=== PATIENT | male | born 1995 | race Caucasian/White ===

== ENCOUNTER 2018-05-30 12:15 | Inpatient (IN) | payer MEDICAID, OTHER ==
[~2018-05-30] VITALS: Ht 180.3 cm; Wt 68.0 kg
[2018-05-30 12:29] VITALS: BP 135/86
--- NOTE | 2018-05-30 12:30 | NUR ---
BIB self w c/o testicular swelling and pain 09/28 x 1 week. States he was having intercourse 1 week ago and started to have a sharp pain in his testicles and they began to swell, and again 3 days ago and developed the same pain and the swelling got worse. Denies NV and dysuria. HX: none RX: none
--- NOTE | 2018-05-30 12:30 | NUR ---
PT AMBULATED TO BED 6 FOR BEDSIDE TRIAGE
--- NOTE | 2018-05-30 12:35 | NUR ---
EDMD AT BEDSIDE PERFORMING MSE
[2018-05-30] MEDS ORDERED: KETOROLAC 60 MG/2 ML VIAL IM ONE (12:55)
[2018-05-30] MEDS ORDERED: cefTRIAXone 250 MG in LIDOCAINE MPF 1% - 5 mL VIAL 0.9 ML IM ONE (12:55)
--- NOTE | 2018-05-30 12:58 | NUR ---
URINE SAMPLE COLLECTED AND SENT TO LAB
[2018-05-30 13:07] LABS: APPEARANCE,URINE CLOUDY (CLEAR); BILIRUBIN,URINE NEGATIVE (NEGATIVE); BLOOD, URINE NEGATIVE (NEGATIVE); COLOR,URINE YELLOW (YELLOW); LEUKOCYTE ESTERASE ,URINE NEGATIVE (NEGATIVE); NITRITE, URINE POSITIVE (NEGATIVE); UGLUCOSE NEGATIVE (NEGATIVE)
--- NOTE | 2018-05-30 13:14 | NUR ---
US AT BEDSIDE
[2018-05-30 13:26] LABS: WBC,URINE 0-5 /HPF (0-5)
[2018-05-30 13:28] LABS: URINE AMORPHOUS URATE 3+ /HPF (None Seen)
[2018-05-30 14:15] VITALS: BP 120/76
--- NOTE | 2018-05-30 14:35 | NUR ---
Pt resting in bed, states he is in "no pain" at this time 0
[2018-05-30] MEDS ORDERED: DOXYCYCLINE 100 MG CAP PO SCH (15:00)
[2018-05-30] MEDS ORDERED: ONDANSETRON 4 MG/2 ML VIAL IM/IVP PRN (15:00)
[2018-05-30] MEDS ORDERED: HYDROcodone/APAP 5/325 MG 1 TAB TAB PO PRN (15:00)
[2018-05-30] MEDS ORDERED: ACETAMINOPHEN 325 MG TAB PO PRN (15:00)
[2018-05-30] MEDS ORDERED: MORPHINE SULFATE 2 MG/ML SYR IVP PRN (15:00)
[2018-05-30] MEDS ORDERED: AZITHROMYCIN 1,000 MG in DEXTROSE 5% 500 ML IV ONE ×2 (15:10→15:15)
[2018-05-30] MEDS ORDERED: cefTRIAXone 1,000 MG VIAL ONE (15:17)
[2018-05-30 15:32] LABS: BASOPHILS # (AUTO) 0.1 K/uL (0.00-0.22); BASOPHILS % (AUTO) 0.5 % (0.0-2.0); EOSINOPHILS # (AUTO) 0.1 K/uL (0-0.4); EOSINOPHILS % (AUTO) 1.5 % (0.0-4.0); HEMATOCRIT 41.8 % (36-52); HEMOGLOBIN 13.9 g/dL (12.0-18.0); LYMPHOCYTES # (AUTO) 1.7 K/uL (2.0-11.5); LYMPHOCYTES % (AUTO) 17.4 % (20.5-51.1); MEAN CORPUSCULAR HEMOGLOBIN 29 pg (27-31); MEAN CORPUSCULAR HGB CONC 33 g/dL (33-37); MEAN CORPUSCULAR VOLUME 87.8 fL (80-94); MONOCYTES # (AUTO) 0.8 K/uL (0.8-1.0); MONOCYTES % (AUTO) 7.6 % (1.7-9.3); NEUTROPHILS # (AUTO) 7.2 K/uL (1.8-7.7); PLATELET COUNT (AUTO) 403 K/uL (140-450); RED BLOOD CELL COUNT(AUTO) 4.76 MIL/uL (4.20-6.10); WHITE BLOOD COUNT (AUTO) 9.8 K/uL (4.8-10.8)
[2018-05-30 15:56] LABS: ALBUMIN 3.2 g/dL (3.4-5.0); ANION GAP 8.9 (8-16); CREATININE 0.9 mg/dL (0.7-1.3); POTASSIUM 3.9 mmol/L (3.5-5.1); TOTAL BILIRUBIN 0.5 mg/dL (0.0-1.0)
[2018-05-30 16:05] LABS: MAGNESIUM 2.2 mg/dL (1.8-2.4); PHOSPHORUS 3.3 mg/dL (2.5-4.9); THYROID STIMULATING HORMONE 1.01 uIU/mL (0.34-3.74)
[2018-05-30 16:05] LABS: BARBITURATE, URINE NEG. ng/ml (NEG <=200); BENZODIAZEPINE, URINE NEG. ng/mL (NEG <=200); CANNABINOID, URINE NEG. ng/mL (NEG <=50); COCAINE, URINE NEG. ng/mL (NEG <=300); OPIATE, URINE NEG. ng/mL (NEG <=2000); PHENCYCLIDINE SCREEN,URINE NEG. ng/mL (NEG <=25)
[2018-05-30 16:10] VITALS: BP 126/76
--- NOTE | 2018-05-30 16:10 | NUR ---
Patient will be admitted to care of Dr. Leonard. Admited to [facility]. Will go to room 111B. Belongings list completed. Report to Lizzeth RUSHING.
--- NOTE | 2018-05-30 16:15 | NUR ---
RECEIVED REPORT FROM CHARGE NURSE. PT IS AAOX4, IV IN RIGHT AC 20G. IV FLUIDS TO BE INFUSED AT 100ML/HR. PT AMBULATES WELL. SKIN INTACT BUT RASH NOTED ON SCROTUM AND PENIS. PICTURE TAKEN. PT HAS NO COMPLAINTS OF PAIN. ON ROOM AIR. VITAL SIGNS STABLE. WILL CONTINUE TO MONITOR PT. DISCUSSED PLAN OF CARE WITH PT. PT VERBALIZED UNDERSTANDING.
[2018-05-30 16:28] LABS: PROTHROMBIN TIME 9.8 secs (10.8-13.4)
[2018-05-30] MEDS ORDERED: NACL 0.9% 1,000 ML IV ONE (16:40)
[2018-05-30] MEDS ORDERED: KETOROLAC 15 MG/ML VIAL IVP SCH (17:00)
[2018-05-30] MEDS ORDERED: AZITHROMYCIN 250 MG TAB PO SCH (18:00)
--- NOTE | 2018-05-30 18:40 | NUR ---
PT RESTING IN BED. IV FLUIDS INFUSING, PAIN MEDS HELD DUE TO PT DENYING PAIN. ZYTHROMAX GIVEN. PT IN STABLE CONDITION AT THIS TIME.
--- NOTE | 2018-05-30 18:52 | NUR ---
PT IS STATING THAT HE WILL BE GOING AMA. DR NOTIFIED OF PT'S DECISION TO LEAVE AMA.
--- NOTE | 2018-05-30 19:26 | NUR ---
ENDORSED PT TO BONE DENSITY TECHNICIAN FOR CONTINUITY OF CARE. PT IN STABLE CONDITION, AMA FORM SIGNED. AWAITING TO GIVE PT PRESCRIPTION.
[2018-05-30] MEDS ORDERED: IBUP-2213 PO (19:31)
[2018-05-30] MEDS ORDERED: LEVO750T2 PO (19:31)
--- NOTE | 2018-05-30 19:50 | NUR ---
PATIENT SIGNED AMA; DR. GUTIERREZ GAVE PRESCRIPTION. IV REMOVED, TIP INTACT. PATIENT DRESSED HIMSELF. PATIENT AMBULATORY, LEFT UNIT WITH FRIEND. PATIENT IN STABLE CONDITION.
[2018-05-30] MEDS ORDERED: LEVOFLOXACIN 500 MG/D5W PREMIX 100 ML IV SCH (21:00)
[2018-05-31] MEDS ORDERED: LACTOBACILLUS RHAMNOSUS GG 1 EACH CAP PO SCH (09:00)
[2018-06-01 06:33] LABS: CHLAMYDIA TRACHOMATIS AMP DNA Negative (Negative)
--- NOTE | 2018-06-02 16:59 | NUR ---
CALLED LEFT VOICEMAIL. REFERRED TO INFECTIOUS CONTROL NURSE. FAXED TO [facility]
--- NOTE | 2018-06-02 16:59 | NUR ---
FAXED TO [facility]
== END 2018-05-30 19:50 | disposition left against medical advice (07) | DRG 501 ==
LOC: MED 12:15 → MTU 15:31
PROVIDERS: ADMIT General Practice; ATTEND General Practice
DX: N45.3 Epididymo-orchitis (principal); E44.1 Mild protein-calorie malnutrition; N39.0 Urinary tract infection, site not specified; F15.10 Other stimulant abuse, uncomplicated; Z53.21 Procedure and treatment not carried out due to patient leaving prior to being seen by health care provider; Z71.51 Drug abuse counseling and surveillance of drug abuser
CPT/HCPCS: 36415; 76870; 80053; 80305; 81001; 83036; 83605; 83690; 83735; 84100; 84134; 84443; 85025; 85610; 85730; 87040; 87081; 87086; 87186; 87491; 96365; 96372; 99285; J0696; J1885; J2001; J7060; Q0092

== ENCOUNTER 2018-12-06 08:51 | Emergency (ER) | payer MEDICAID ==
[~2018-12-06] VITALS: Ht 177.8 cm; Wt 65.0 kg
[~2018-12-06 08:51] MED LIST: IBUP-2213 PO; LEVO750T2 PO
[2018-12-06 08:58] VITALS: BP 125/77
[2018-12-06] MEDS ORDERED: KETOROLAC 60 MG/2 ML VIAL IM ONE (09:30)
[2018-12-06 10:04] LABS: BASOPHILS % (AUTO) 0.5 % (0.0-2.0); EOSINOPHILS # (AUTO) 0.1 K/uL (0-0.4); EOSINOPHILS % (AUTO) 1.4 % (0.0-4.0); HEMATOCRIT 42.9 % (36-52); HEMOGLOBIN 14.5 g/dL (12.0-18.0); LYMPHOCYTES # (AUTO) 1.7 K/uL (2.0-11.5); LYMPHOCYTES % (AUTO) 18.2 % (20.5-51.1); MEAN CORPUSCULAR HEMOGLOBIN 30 pg (27-31); MEAN CORPUSCULAR HGB CONC 34 g/dL (33-37); MEAN CORPUSCULAR VOLUME 87.9 fL (80-94); MONOCYTES # (AUTO) 1.2 K/uL (0.8-1.0); MONOCYTES % (AUTO) 12.4 % (1.7-9.3); NEUTROPHILS # (AUTO) 6.3 K/uL (1.8-7.7); NEUTROPHILS % (AUTO) 67.5 % (42.2-75.2); PLATELET COUNT (AUTO) 294 K/uL (140-450); RED BLOOD CELL COUNT(AUTO) 4.88 MIL/uL (4.20-6.10); RED CELL DISTRIBUTION WIDTH 14.2 % (11.6-13.7); WHITE BLOOD COUNT (AUTO) 9.3 K/uL (4.8-10.8)
[2018-12-06 10:12] LABS: ANION GAP 11.2 (8-16); CARBON DIOXIDE 28.2 mmol/L (21-32); CREATININE 0.9 mg/dL (0.7-1.3); POTASSIUM 3.4 mmol/L (3.5-5.1)
[2018-12-06 10:18] LABS: ALBUMIN 3.7 g/dL (3.4-5.0); TOTAL BILIRUBIN 0.9 mg/dL (0.0-1.0)
[2018-12-06 11:55] VITALS: BP 103/70
== END 2018-12-06 11:40 | disposition home or self-care (01) ==
LOC: MED 08:51
DX: R10.31 Right lower quadrant pain (principal); R59.0 Localized enlarged lymph nodes; Z79.1 Long term (current) use of non-steroidal anti-inflammatories (NSAID); Z79.2 Long term (current) use of antibiotics
CPT/HCPCS: 36415; 74176; 80053; 83690; 85025; 96372; 99284; J1885

== ENCOUNTER 2018-12-20 13:30 | Emergency (ER) | payer MEDICAID ==
[~2018-12-20] VITALS: Ht 180.3 cm; Wt 63.7 kg
[2018-12-20 13:37] VITALS: BP 152/80
[2018-12-20 16:03] VITALS: BP 152/80
== END 2018-12-20 16:03 | disposition home or self-care (01) ==
LOC: MED 13:30
DX: R59.0 Localized enlarged lymph nodes (principal); F15.10 Other stimulant abuse, uncomplicated; Z79.2 Long term (current) use of antibiotics; Z79.1 Long term (current) use of non-steroidal anti-inflammatories (NSAID)
CPT/HCPCS: 76536; 99284; Q0092

== ENCOUNTER 2020-02-25 22:16 | Emergency (ER) | payer MEDICAID ==
[~2020-02-25] VITALS: Ht 180.3 cm; Wt 86.2 kg
[2020-02-25] MEDS ORDERED: ACETAMINOPHEN EXTRA STRENGTH 500 MG TAB ONE (22:20)
[2020-02-25 22:23] VITALS: BP 108/58
[2020-02-25] MEDS ORDERED: ACETAMINOPHEN EXTRA STRENGTH 500 MG TAB PO ONE (22:25)
--- NOTE | 2020-02-25 22:25 | NUR ---
triaged and sent to tent
[2020-02-25 22:44] VITALS: BP 108/58
--- NOTE | 2020-02-25 23:48 | NUR ---
Patient discharged with v/s stable. Written and verbal after care instructions given and explained. Patient alert, oriented and verbalized understanding of instructions. Ambulatory with steady gait. All questions addressed prior to discharge. ID band removed. Patient advised to follow up with PMD. Rx of NORCO, MOTRIN, AND PREDNISONE given. Patient educated on indication of medication including possible reaction and side effects. Opportunity to ask questions provided and answered.
== END 2020-02-25 23:48 | disposition home or self-care (01) ==
LOC: MED 22:16
DX: J02.9 Acute pharyngitis, unspecified (principal); R50.9 Fever, unspecified; R05 Cough; Z79.899 Other long term (current) drug therapy
CPT/HCPCS: 99283

== ENCOUNTER 2020-06-15 13:10 | Emergency (ER) | payer MEDICAID ==
[~2020-06-15] VITALS: Ht 180.3 cm; Wt 86.2 kg
[2020-06-15 13:13] VITALS: BP 129/93
--- NOTE | 2020-06-15 13:15 | NUR ---
PT TAKEN TO BED 11.
--- NOTE | 2020-06-15 13:16 | NUR ---
25Y/O M BIB SELF C/C X3DAYS "BLOWING AND CRUSHING" EPIGASTRIC PAIN THAT SPREADS OUTWARD. REPORTS 2HR RELIEF WHEN HE USED PEPTO BISMAL AND TUMS BUT PAIN CAME BACK. REPORTS NO PAIN NOW BUT RATES IT AN 8 WHEN IT IS PRESENT. TTP ON EPIGASTRIC REGION, S1 & S2 PRESENT. NO EDEMA NOTED. LUNGS CLEAR IN ALL ESCOBAR. PMH: CHILDHOOD ASTHMA NKA RX: DENIES
--- NOTE | 2020-06-15 13:20 | NUR ---
PROVIDER EVALUATING PT AT BEDSIDE.
[2020-06-15] MEDS ORDERED: DICYCLOMINE HCL LIQUID 20 MG, ALUMINUM HYD/MAG/SIMETHICONE 30 ML, LIDOCAINE VISCOUS 2% ... PO ONE ×3 (13:30)
[2020-06-15] MEDS ORDERED: DICYCLOMINE HCL LIQUID 10 MG/5 ML UDC ONE (13:37)
[2020-06-15] MEDS ORDERED: LIDOCAINE VISCOUS 2% 20 ML UDC ONE (13:37)
[2020-06-15] MEDS ORDERED: ALUMINUM HYD/MAG/SIMETHICONE 30 ML UDC ONE (13:37)
[2020-06-15 13:41] LABS: BASOPHILS % (AUTO) 0.4 % (0.0-2.0); EOSINOPHILS # (AUTO) 0.2 K/uL (0-0.4); HEMATOCRIT 43.7 % (36-52); HEMOGLOBIN 14.6 g/dL (12.0-18.0); LYMPHOCYTES # (AUTO) 1.9 K/uL (2.0-11.5); LYMPHOCYTES % (AUTO) 20.9 % (20.5-51.1); MEAN CORPUSCULAR HEMOGLOBIN 29 pg (27-31); MEAN CORPUSCULAR HGB CONC 34 g/dL (33-37); MEAN CORPUSCULAR VOLUME 87.4 fL (80-94); MONOCYTES % (AUTO) 10.5 % (1.7-9.3); NEUTROPHILS # (AUTO) 6.2 K/uL (1.8-7.7); NEUTROPHILS % (AUTO) 66.2 % (42.2-75.2); PLATELET COUNT (AUTO) 286 K/uL (140-450); RED CELL DISTRIBUTION WIDTH 13.9 % (11.6-13.7); WHITE BLOOD COUNT (AUTO) 9.3 K/uL (4.8-10.8)
[2020-06-15] MEDS ORDERED: ACETAMINOPHEN EXTRA STRENGTH 500 MG TAB PO ONE (13:45)
[2020-06-15 14:09] LABS: ALBUMIN 3.9 g/dL (3.4-5.0); ANION GAP 11.2 (8-16); CARBON DIOXIDE 26.5 mmol/L (21-32); CREATININE 0.8 mg/dL (0.6-1.3); POTASSIUM 3.7 mmol/L (3.5-5.1); TOTAL BILIRUBIN 0.7 mg/dL (0.0-1.0)
[2020-06-15] MEDS ORDERED: OMEP40EC24 PO (14:41)
[2020-06-15] MEDS ORDERED: MAG-27 PO (14:41)
[2020-06-15 15:10] VITALS: BP 129/93
--- NOTE | 2020-06-15 15:10 | NUR ---
Patient discharged with v/s stable. Written and verbal after care instructions given and explained. Patient alert, oriented and verbalized understanding of instructions. Ambulatory with steady gait. All questions addressed prior to discharge. ID band removed. Patient advised to follow up with PMD. Rx of PRILOSEC [place] given. Patient educated on indication of medication including possible reaction and side effects. Opportunity to ask questions provided and answered.
== END 2020-06-15 15:10 | disposition home or self-care (01) ==
LOC: MED 13:10
DX: R10.30 Lower abdominal pain, unspecified (principal)
CPT/HCPCS: 36415; 80053; 81002; 83690; 85025; 99283

== ENCOUNTER 2023-02-14 13:11 | Emergency (ER) | payer MEDICAID ==
[~2023-02-14] VITALS: Ht 180.3 cm; Wt 104.3 kg
[~2023-02-14 13:11] MED LIST changes: +MAG-27 PO; +OMEP40EC24 PO
[2023-02-14 13:33] VITALS: BP 117/87; PULSE 72; RESP 16; TEMP 97; O2SAT 99
[2023-02-14] MEDS ORDERED: FLUORESCEIN OPTH STRIP 1 MG OP ONE (14:15)
[2023-02-14] MEDS ORDERED: TETRACAINE HCL/PF 0.5% OPTH 4 ML BTL OP ONE (14:15)
== END 2023-02-14 14:30 | disposition left against medical advice (07) ==
LOC: MED 13:11
DX: H57.11 Ocular pain, right eye (principal); Z79.899 Other long term (current) drug therapy
CPT/HCPCS: 99281; 99284